=== PATIENT | female | born 1950 | race African-American/Black ===

== ENCOUNTER 2022-12-16 21:54 | Inpatient (IN) | payer MEDICARE, OTHER ==
[~2022-12-16] VITALS: Ht 172.7 cm; Wt 68.0 kg
[2022-12-16] MEDS ORDERED: DIPH25TA27 IM (22:12)
[2022-12-16] MEDS ORDERED: MULT-1275 PO (22:12)
[2022-12-16] MEDS ORDERED: SERT50TA PO (22:12)
[2022-12-16] MEDS ORDERED: RISP1TAB97 PO (22:12)
[2022-12-16] MEDS ORDERED: ACET325T53 PO (22:12)
[2022-12-16] MEDS ORDERED: HALO100A3 IM (22:12)
[2022-12-16] MEDS ORDERED: VALP500S PO (22:12)
[2022-12-16] MEDS ORDERED: ATEN-170 PO (22:12)
[2022-12-16 22:39] LABS: BASOPHILS % (AUTO) 0.9 % (0.0-2.0); EOSINOPHILS % (AUTO) 1.2 % (0.0-7.0); HEMATOCRIT 36.3 % (31.2-41.9); HEMOGLOBIN 12.1 g/dL (10.9-14.3); LYMPHOCYTES % (AUTO) 34.9 % (20.5-51.5); MEAN CORPUSCULAR HEMOGLOBIN 31.2 uug (24.7-32.8); MEAN CORPUSCULAR HGB CONC 33 g/dL (32.3-35.6); MEAN CORPUSCULAR VOLUME 93.9 fL (75.5-95.3); MONOCYTES # (AUTO) 0.3 K/uL (0.1-1.30); MONOCYTES % (AUTO) 9.3 % (0.0-11.0); NEUTROPHILS # (AUTO) 1.5 K/uL (1.8-8.9); NEUTROPHILS % (AUTO) 53.7 % (38.5-71.5); PLATELET COUNT (AUTO) 258 K/uL (179-408); RED BLOOD CELL COUNT(AUTO) 3.87 MIL/uL (3.63-4.92); RED CELL DISTRIBUTION WIDTH 13.2 % (12.3-17.7); WHITE BLOOD COUNT (AUTO) 2.7 K/uL (3.8-11.8)
[2022-12-16 22:49] LABS: CALCIUM 9.1 mg/dL (8.5-10.1); CARBON DIOXIDE 30 mmol/L (21-32); CHLORIDE 103 mmol/L (98-107); CREATININE 0.8 mg/dL (0.6-1.3); GLUCOSE 114 mg/dL (74-106); POTASSIUM 3.6 mmol/L (3.5-5.1); SODIUM SERUM 140 mmol/L (136-145); UREA NITROGEN, BLOOD 20 mg/dL (7-18)
[2022-12-16 22:50] LABS: ETHANOL < 3 MG/DL (0-10)
[2022-12-16 23:00] LABS: ALANINE AMINOTRANSFERASE 23 U/L (14-59); ALBUMIN 3.5 g/dL (3.4-5.0); ALKALINE PHOSPHATASE 86 U/L (50-136); ASPARTATE AMINOTRANSFERASE 37 U/L (15-37); BILIRUBIN,DIRECT 0.1 mg/dL (0.0-0.2); BILIRUBIN,TOTAL 0.3 mg/dL (0.2-1.0)
[2022-12-16 23:18] LABS: LYMPHOCYTES % (MANUAL) 30 % (20-40); MONOCYTES % (MANUAL) 12 % (2-10); NEUTROPHILS % (MANUAL) 58 % (42-75); PLATELET ESTIMATE ADEQUATE
[2022-12-17 00:42] VITALS: O2SAT 100
[2022-12-17 02:06] LABS: *BILIRUBIN,URIN NEGATIVE (NEGATIVE); *CLARITY,URINE CLEAR (CLEAR); *COLOR,URINE YELLOW (YELLOW); *KETONES,URINE NEGATIVE (NEGATIVE); *PROTEIN,URINE NEGATIVE (NEGATIVE); *UROBILINOGEN,URINE 0.2 E.U./dl (NORMAL); LEUKOCYTE ESTERASE ,URINE TRACE (NEGATIVE); NITRITE, URINE NEGATIVE (NEGATIVE); PH,URINE 7.5 (5.0-8.0); UGLUCOSE NEGATIVE (NEGATIVE)
[2022-12-17 02:20] LABS: *BLOOD, URINE TRACE (NEGATIVE)
[2022-12-17 02:24] LABS: *AMPHETAMINE, URINE NEGATIVE (NEGATIVE); *BARBITURATE, URINE NEGATIVE (NEGATIVE); *BENZODIAZEPINE, URINE NEGATIVE (NEGATIVE); *CANNABINOID, URINE NEGATIVE (NEGATIVE); *COCCAINE, URINE NEGATIVE (NEGATIVE); *OPIATE, URINE NEGATIVE (NEGATIVE); *PHENCYCLIDINE SCREEN,URINE NEGATIVE (NEGATIVE); FENTANYL, URINE NEGATIVE (NEGATIVE)
[2022-12-17 02:28] LABS: RBC,URINE 0-3 /HPF (0-3); WBC,URINE 0-3 /HPF (0-3)
[2022-12-17 02:29] LABS: BACTERIA,URINE FEW /HPF (NONE SEEN); SQUAMOUS EPITHELIAL CELL,UR MODERATE /HPF (NONE SEEN)
[2022-12-17] MEDS ORDERED: LORAZEPAM 1 MG TABLET PO PRN (05:00)
[2022-12-17] MEDS ORDERED: MAG HYDROX/AL HYDROX/SIMETH 30 ML LIQUID UDC PO PRN (05:00)
[2022-12-17] MEDS ORDERED: ZOLPIDEM 5 MG TABLET PO PRN (05:00)
[2022-12-17] MEDS ORDERED: MAGNESIUM HYDROXIDE 30 ML LIQUID UDC PO PRN (05:00)
[2022-12-17] MEDS ORDERED: ACETAMINOPHEN 325 MG TABLET PO PRN (05:00)
[2022-12-17] MEDS: risperiDONE 1 MG TABLET PO SCH ×2 (10:15→17:00)
[2022-12-17] MEDS: DIVALPROEX SPRINKLE 125 MG CAP.SPRINK PO SCH ×2 (12:03→17:00)
[2022-12-18] MEDS: DIVALPROEX SPRINKLE 125 MG CAP.SPRINK PO SCH ×3 (08:37→17:00)
[2022-12-18] MEDS: risperiDONE 1 MG TABLET PO SCH ×2 (08:38→17:00)
[2022-12-18] MEDS ORDERED: OLANZAPINE 10 MG VIAL IM ONE (10:15)
[2022-12-19] MEDS ORDERED: OLANZAPINE 5 MG TABLET PO SCH (09:00)
[2022-12-19] MEDS: risperiDONE 1 MG TABLET PO SCH ×2 (09:00→17:00)
[2022-12-19] MEDS: DIVALPROEX 250 MG TABLET.DR PO SCH ×2 (13:00→17:00)
[2022-12-20] MEDS: DIVALPROEX 250 MG TABLET.DR PO SCH ×4 (08:02→16:54)
[2022-12-20] MEDS: risperiDONE 1 MG TABLET PO SCH ×2 (08:02→16:54)
[2022-12-21] MEDS: risperiDONE 1 MG TABLET PO SCH ×2 (09:00→17:00)
[2022-12-21] MEDS: ATENOLOL 25 MG TABLET PO SCH (09:00)
[2022-12-21] MEDS: DIVALPROEX 250 MG TABLET.DR PO SCH ×3 (09:00→17:00)
[2022-12-21] MEDS: MULTIVITAMINS,THERAPEUTIC TABLET PO SCH (09:00)
[2022-12-22] MEDS: MULTIVITAMINS,THERAPEUTIC TABLET PO SCH (09:00)
[2022-12-22] MEDS: risperiDONE 1 MG TABLET PO SCH ×5 (09:00→17:00)
[2022-12-22] MEDS: ATENOLOL 25 MG TABLET PO SCH (09:00)
[2022-12-22] MEDS: DIVALPROEX 250 MG TABLET.DR PO SCH ×3 (09:00→17:00)
[2022-12-22] MEDS: diphenhydrAMINE 50 MG/1 ML VIAL IM PRN ×3 (10:54→17:55)
[2022-12-22] MEDS: HALOPERIDOL LACTATE 5 MG/1 ML VIAL IM PRN ×3 (10:54→17:55)
[2022-12-23] MEDS: MULTIVITAMINS,THERAPEUTIC TABLET PO SCH (08:52)
[2022-12-23] MEDS: risperiDONE 1 MG TABLET PO SCH ×3 (08:52→16:48)
[2022-12-23] MEDS: ATENOLOL 25 MG TABLET PO SCH (08:52)
[2022-12-23] MEDS: DIVALPROEX 250 MG TABLET.DR PO SCH ×3 (08:52→16:51)
[2022-12-23] MEDS: diphenhydrAMINE 50 MG/1 ML VIAL IM PRN (08:53)
[2022-12-23] MEDS: HALOPERIDOL LACTATE 5 MG/1 ML VIAL IM PRN (08:53)
[2022-12-24] MEDS: risperiDONE 1 MG TABLET PO SCH ×3 (08:37→16:40)
[2022-12-24] MEDS: DIVALPROEX 250 MG TABLET.DR PO SCH ×3 (08:38→16:40)
[2022-12-24] MEDS: ATENOLOL 25 MG TABLET PO SCH (09:00)
[2022-12-24] MEDS: MULTIVITAMINS,THERAPEUTIC TABLET PO SCH (09:00)
[2022-12-25] MEDS ORDERED: HALOPERIDOL LACTATE 5 MG/1 ML VIAL IM PRN (07:30)
[2022-12-25] MEDS ORDERED: diphenhydrAMINE 50 MG/1 ML VIAL IM PRN (07:30)
[2022-12-25] MEDS: MULTIVITAMINS,THERAPEUTIC TABLET PO SCH (08:03)
[2022-12-25] MEDS: ATENOLOL 25 MG TABLET PO SCH (08:03)
[2022-12-25] MEDS ORDERED: risperiDONE 1 MG TABLET PO SCH (09:00)
[2022-12-25] MEDS: DIVALPROEX 250 MG TABLET.DR PO SCH ×3 (09:43→20:39)
[2022-12-25] MEDS: HALOPERIDOL 2 MG TABLET PO SCH ×2 (09:43→16:09)
[2022-12-25] MEDS: BENZTROPINE MESYLATE 0.5 MG TABLET PO SCH ×2 (09:43→16:10)
[2022-12-25] MEDS: HALOPERIDOL 5 MG TABLET PO SCH (20:40)
[2022-12-26] MEDS: BENZTROPINE MESYLATE 0.5 MG TABLET PO SCH ×2 (08:17→17:22)
[2022-12-26] MEDS: MULTIVITAMINS,THERAPEUTIC TABLET PO SCH (08:17)
[2022-12-26] MEDS: DIVALPROEX 250 MG TABLET.DR PO SCH ×3 (08:18→20:33)
[2022-12-26] MEDS: HALOPERIDOL 2 MG TABLET PO SCH ×2 (08:18→17:22)
[2022-12-26] MEDS: ATENOLOL 25 MG TABLET PO SCH (08:29)
[2022-12-26] MEDS: HALOPERIDOL 5 MG TABLET PO SCH (20:33)
[2022-12-27] MEDS: MULTIVITAMINS,THERAPEUTIC TABLET PO SCH (08:47)
[2022-12-27] MEDS: DIVALPROEX 250 MG TABLET.DR PO SCH ×3 (08:48→21:26)
[2022-12-27] MEDS: HALOPERIDOL 2 MG TABLET PO SCH ×2 (08:48→18:01)
[2022-12-27] MEDS: BENZTROPINE MESYLATE 0.5 MG TABLET PO SCH ×2 (08:48→18:01)
[2022-12-27] MEDS: ATENOLOL 25 MG TABLET PO SCH (08:57)
[2022-12-27] MEDS: HALOPERIDOL 5 MG TABLET PO SCH (21:26)
[2022-12-28] MEDS: BENZTROPINE MESYLATE 0.5 MG TABLET PO SCH ×2 (09:00→17:04)
[2022-12-28] MEDS ORDERED: HALOPERIDOL DECANOATE 50 MG/1 ML AMPUL IM SCH (09:00)
[2022-12-28] MEDS: ATENOLOL 25 MG TABLET PO SCH (09:00)
[2022-12-28] MEDS: DIVALPROEX 250 MG TABLET.DR PO SCH ×3 (09:38→20:21)
[2022-12-28] MEDS: MULTIVITAMINS,THERAPEUTIC TABLET PO SCH (09:38)
[2022-12-28] MEDS: HALOPERIDOL 2 MG TABLET PO SCH ×2 (09:38→17:04)
[2022-12-28] MEDS: MELATONIN 3 MG TABLET PO SCH (20:21)
[2022-12-28] MEDS: HALOPERIDOL 5 MG TABLET PO SCH (20:21)
[2022-12-29] MEDS: MULTIVITAMINS,THERAPEUTIC TABLET PO SCH (08:38)
[2022-12-29] MEDS: DIVALPROEX 250 MG TABLET.DR PO SCH ×3 (08:38→20:53)
[2022-12-29] MEDS: HALOPERIDOL 2 MG TABLET PO SCH ×2 (08:39→17:29)
[2022-12-29] MEDS: ATENOLOL 25 MG TABLET PO SCH (08:39)
[2022-12-29] MEDS: BENZTROPINE MESYLATE 0.5 MG TABLET PO SCH ×2 (08:39→17:30)
[2022-12-29] MEDS: HALOPERIDOL 5 MG TABLET PO SCH (20:53)
[2022-12-29] MEDS: MELATONIN 3 MG TABLET PO SCH (20:53)
[2022-12-30] MEDS: HALOPERIDOL 2 MG TABLET PO SCH ×2 (08:31→17:22)
[2022-12-30] MEDS: DIVALPROEX 250 MG TABLET.DR PO SCH ×3 (08:31→20:41)
[2022-12-30] MEDS: BENZTROPINE MESYLATE 0.5 MG TABLET PO SCH (08:34)
[2022-12-30] MEDS: ATENOLOL 25 MG TABLET PO SCH (08:34)
[2022-12-30] MEDS: MULTIVITAMINS,THERAPEUTIC TABLET PO SCH (08:34)
[2022-12-30] MEDS: HALOPERIDOL 5 MG TABLET PO SCH (20:41)
[2022-12-30] MEDS: MELATONIN 3 MG TABLET PO SCH (20:42)
[2022-12-31] MEDS: DIVALPROEX 250 MG TABLET.DR PO SCH ×3 (08:35→20:30)
[2022-12-31] MEDS: ENSURE ENLIVE (VAN) 240 ML LIQUID PO SCH (08:36)
[2022-12-31] MEDS: HALOPERIDOL 2 MG TABLET PO SCH ×2 (08:36→16:21)
[2022-12-31] MEDS: MULTIVITAMINS,THERAPEUTIC TABLET PO SCH (08:37)
[2022-12-31] MEDS: ATENOLOL 25 MG TABLET PO SCH (08:37)
[2022-12-31] MEDS: MELATONIN 3 MG TABLET PO SCH (20:30)
[2022-12-31] MEDS: HALOPERIDOL 5 MG TABLET PO SCH (20:30)
[2023-01-01] MEDS: HALOPERIDOL 2 MG TABLET PO SCH (08:41)
[2023-01-01] MEDS: DIVALPROEX 250 MG TABLET.DR PO SCH (08:41)
[2023-01-01 08:42] VITALS: BP 122/80
[2023-01-01] MEDS: ATENOLOL 25 MG TABLET PO SCH (08:42)
[2023-01-01] MEDS: MULTIVITAMINS,THERAPEUTIC TABLET PO SCH (08:42)
[2023-01-01] MEDS: ENSURE ENLIVE (VAN) 240 ML LIQUID PO SCH (08:42)
== END 2023-01-01 11:15 | DRG 885 ==
LOC: ER 22:01 → GPS 12-17 04:34
PROVIDERS: ADMIT Psychiatry & Neurology Psychiatry; ATTEND Nurse Practitioner Acute Care
DX: F25.0 Schizoaffective disorder, bipolar type (principal); G93.41 Metabolic encephalopathy; F02.811 Dementia in other diseases classified elsewhere, unspecified severity, with agitation; F02.818 Dementia in other diseases classified elsewhere, unspecified severity, with other behavioral disturbance; G30.9 Alzheimer's disease, unspecified; Z91.148 Patient's other noncompliance with medication regimen for other reason; Z86.16 Personal history of COVID-19; Z79.899 Other long term (current) drug therapy; D72.819 Decreased white blood cell count, unspecified; R79.89 Other specified abnormal findings of blood chemistry; H26.9 Unspecified cataract; R27.8 Other lack of coordination
CPT/HCPCS: 36415; 70030-TC; 80164; 85025; G0480; J1200; J1630; J1631; J2358; J3490